=== PATIENT | female | born 1945 | race Caucasian/White ===

== ENCOUNTER 2016-07-04 06:54 | Inpatient (IN) | payer MEDICARE, OTHER ==
[2016-06-29 13:00] LABS: BASOPHILS 0.2 %; BASOPHILS ABSOLUTE 0.01 10/3/uL (0.0-0.16); EOSINOPHILS 0.5 %; EOSINOPHILS ABSOLUTE 0.03 10/3/uL (0.0-0.53); HEMATOCRIT 37.9 % (36.0-48.0); HEMOGLOBIN 12.9 g/dL (12.0-16.0); IMMATURE GRANULOCYTES 0.2 %; IMMATURE GRANULOCYTES ABSOLUTE 0.01 10/3/uL (0.0-0.11); LYMPHOCYTES 35.3 %; LYMPHOCYTES ABSOLUTE 1.93 10/3/uL (0.67-4.30); MEAN CORPUSCULAR HEMOGLOB 30.1 pg (26.0-34.0); MEAN CORPUSCULAR VOLUME 88.3 fL (80-100); MEAN PLATELET VOLUME 10.7 fL (9.2-13.0); MONOCYTES 5.7 %; MONOCYTES ABSOLUTE 0.31 10/3/uL (0.21-1.20); NEUTROPHILS 58.1 %; NEUTROPHILS ABSOLUTE 3.18 10/3/uL (2.02-8.40); PLATELET COUNT 177 10/3/uL (150-400); RBC DISTRIBUTION WIDTH 13.1 % (12.0-16.0); RED CELL COUNT 4.29 10/6/uL (4.0-5.6)
[2016-06-29 13:03] LABS: MANUAL DIFF NO %; WHITE BLOOD CELLS 5.5 10/3/uL (4.5-10.5)
[2016-06-29 13:07] LABS: INTERNATIONAL NORMAL RATI 1.1 UNITS (-); PROTIME (NOT ORD) 13.9 SEC (12.0-14.5)
[2016-06-29 13:11] LABS: ASCORBIC ACID (UR NOT ORDER) NEG (NEG); BILIRUBIN, URINE NEGATIVE (NEG); KETONE, URINE NEGATIVE (NEG); LEUKOCYTE ESTERASE(NOT OR LARGE (NEG); WBC (NOT ORDERED) (RFLEX) 16 (0-5)
[2016-06-29 13:17] LABS: % IRON SAT 24 % (20-50); A/G RATIO 1.4 (0.7-1.9); ALKALINE PHOSPHATASE 95 U/L (45-117); CALCIUM, SERUM 9.6 MG/DL (8.5-10.4); CHLORIDE, SERUM 108 MMOL/L (96-112); CO2 (CARBON DIOXIDE) 29 MMOL/L (24-34); CREATININE 0.61 MG/DL (0.55-1.02); GFR AFRICAN AMERICAN 106 ML/MIN (>=60); GFR NON AFRICAN AMERICAN 92 ML/MIN (>=60); GLOBULIN 2.8 G/DL (2.5-4.1); GLUCOSE, SERUM 113 MG/DL (60-99); IRON BINDING CAPACITY 366 MCG/DL (225-410); IRON, SERUM 87 MCG/DL (35-150); POTASSIUM, SERUM 3.8 MMOL/L (3.5-5.3); SGOT(AST) 14 U/L (5-40); SGPT(ALT) 23 U/L (5-65); SODIUM, SERUM 144 MMOL/L (135-148); TOTAL BILIRUBIN 0.5 MG/DL (0-1.2); TOTAL PROTEIN 6.8 G/DL (6.0-8.5)
[2016-06-29 13:18] LABS: BUN (BLOOD UREA NITROGEN) 13 MG/DL (6-23)
--- NOTE | ~2016-07-04 | DS ---
Discharge Summary [facility] [address] [place]. [address] NAME: MONTY BEYER : 47 STATUS : DIS IN PAT#: [id number] AGE: 71 ADM/REG DATE : 07/04/16 MR#: [id number] REPORT SERV DATE: 07/20/16 DICTATED BY: MALGORZATA DIAL DATE: 07/19/16 REPORT STATUS : Draft TRANSCRIBED BY: ADARSH DATE: 07/19/16 Data Collection from hospitalization DISCHARGE DIAGNOSES: 1. Coronary artery disease status post coronary artery bypass grafting. 2. Hypertension. 3. Hyperlipidemia. 4. Peripheral vascular disease. 5. History of transient ischemic attack. 6. Sjogren syndrome. 7. Fibromyalgia. 8. Paget disease. CONSULTATIONS: Dr. Slava Damon. PROCEDURES PERFORMED: Coronary artery bypass grafting x2 with BILL to the LAD, right internal mammary artery placed to the first diagonal, bilateral internal mammary artery harvest, transesophageal echocardiography, 07/04/2016. DISCHARGE MEDICATIONS: Norvasc 10 mg daily, aspirin 81 mg daily, Lipitor 40 mg daily, Dulcolax 15 mg as needed/Dulcolax 300 mg daily as needed, Lasix 40 mg daily, Lopressor 25 mg twice a day, K-Dur 20 mEq daily, Fleetwood Saline gel one application nasally daily as needed, Fleetwood nasal mist one spray nasally daily as needed, Nucynta 50 mg every four hours as needed, probiotic one tablet daily. CONDITION AT DISCHARGE: Stable. DISPOSITION: The patient was discharged home on an 1800-calorie cardiac/diabetic diet with activities as instructed. She would follow up with Andrés Olson, 09/07/[address] Kalpana Beyer, 07/28/2016. She would follow up with Dr. Krzysztof Martin, 07/19/2016. HOSPITAL COURSE: This is a 71-year-old female, who is a nondiabetic and nonsmoker. She has a history of peripheral vascular disease with splenic artery aneurysm. She began developing substernal chest discomfort with exertion at time. She sometimes developed unstable anginal symptoms. She had undergone a cardiac catheterization that demonstrated significant coronary artery disease in the LAD and first diagonal system. She had no significant coronary artery disease of the circumflex or right coronary system. Her ventricular function was preserved with ejection fraction greater than 50%. It was felt that the patient's LAD could not be intervened on without jeopardizing this large diagonal that functions as a ramus intermedius vessel in this patient. It was felt that the patient would need to undergo coronary artery bypass grafting. She does have a history of bilateral saphenous vein stripping in the past. She has had venous ultrasound studies that did not show any significant collateral veins in the leg to use for conduit. Treatment options were discussed and it was elected to proceed with surgical intervention. She was admitted to the hospital for further evaluation and treatment. Upon admission, she was taken to the operating room, where she underwent the above-mentioned procedure. She tolerated this well and there were no complications. Postoperatively, she Discharge Summary [address] [place]. [address] NAME: MONTY BEYER : 47 STATUS : DIS IN [facility]#: [id number] AGE: 71 ADM/REG DATE : 07/04/16 MR#: [id number] REPORT SERV DATE: 07/20/16 DICTATED BY: MALGORZATA DIAL DATE: 07/19/16 REPORT STATUS : Draft TRANSCRIBED BY: ADARSH DATE: 07/19/16 was being weaned from the ventilator. Routine postop care was begun. Lipitor was continued. Pepcid was also continued. There had been no evidence of mitral valve dysfunction. Left ventricular ejection fraction was 55%-60%. On the , she was up sitting in a chair. Her lungs were clear. Chest tubes were going to be removed. Low-dose Nucynta was going to began. She was seen by Dr. Slava Damon. Her sternum was sore. She had no shortness of breath or palpitations. White count was 13.7. Blood pressure was under good control now. Hydralazine would be given as needed. We encouraged her to use incentive spirometry. IV Lasix was given for diuresis. On the , her incisions looked okay. She had no edema. White count was 9.8. She remained in a sinus rhythm. We encouraged her to increase her activity. Blood pressure was under good control. On 07/08/2016, she did complain of mild chest soreness around the sternum. She had good pain control. She had no new complaints. Chest x-ray showed bilateral atelectasis and bilateral pleural effusions. She seemed to be progressing well. Discharge planning was performed. She had decreased O2 requirement. She was encouraged to increase her activity. On 07/10/2016, she looked good. She was ambulating in the still. She had decreased breath sounds in the bases. Discharge instructions were given. Due to her improved and stable condition, she was discharged home with the above-stated instructions. Information collected by: Sofi Urbano I submit the above information as my discharge summary. CINDY/ADARSH Malgorzata Dial M.D. / [id number] CC: Clarissa Cruz M.D. Brian Negus, M.D.
--- NOTE | ~2016-07-04 | OP ---
Record Of Operation [facility] [address] [place]. [address] NAME: MONTY BEYER : 47 STATUS : ADM IN PAT#: [id number] AGE: 71 ADM/REG DATE : 07/04/16 MR#: [id number] REPORT SERV DATE: 07/04/16 DICTATED BY: MALGORZATA DIAL DATE: 07/04/16 REPORT STATUS : Draft TRANSCRIBED BY: MODL DATE: 07/04/16 DATE OF PROCEDURE: 07/04/2016 PREOPERATIVE DIAGNOSES: 1. Coronary artery disease with angina. 2. Peripheral vascular disease with splenic artery aneurysm. 3. Sjogren's syndrome. 4. Hypertension. 5. Hyperlipidemia. 6. History of transient ischemic attack or stroke. POSTOPERATIVE DIAGNOSES: 1. Coronary artery disease with angina. 2. Peripheral vascular disease with splenic artery aneurysm. 3. Sjogren's syndrome. 4. Hypertension. 5. Hyperlipidemia. 6. History of transient ischemic attack or stroke. PROCEDURES PERFORMED: 1. Coronary artery bypass grafting x2, left internal mammary artery placed to left anterior descending, right internal mammary artery placed to the first diagonal. 2. Bilateral internal mammary artery harvest. 3. Transesophageal echocardiography. SURGEON: Malgorzata Dial M.D. ASSISTANTS: Gavi Vale, and Moe Fairbanks. ANESTHESIA: General with Dr. Graeme Villaseñor. ATHLETIC SCOUT: Jaden Garg M.D. INDICATIONS: This is a 71-year-old active female, who is nondiabetic and nonsmoker. She has history of peripheral vascular disease with splenic artery aneurysm. She began developing substernal chest discomfort with exertion at times. Sometimes develops unstable anginal symptoms. She was referred by Dr. Martin to Dr. Garg, and underwent a cardiac catheterization demonstrating significant coronary artery disease in the LAD, and first diagonal system. She had no significant coronary artery disease of the circumflex or right coronary systems. Her ventricular function was preserved with ejection fraction greater than 50%. It was felt that the patient's LAD could not be intervened on without jeopardizing this large diagonal that functions as a ramus intermedius vessel in this patient. We were asked to see the patient for possible coronary artery bypass grafting. She has a history of bilateral saphenous vein stripping in the past. She has had venous ultrasound studies that did not show any significant collateral veins in the legs to use for conduit. We discussed possible bypass surgery with the patient and her family, and after Record Of Operation [facility] [address] [place]. [address] NAME: MONTY BEYER : 47 STATUS : ADM IN PAT#: [id number] AGE: 71 ADM/REG DATE : 07/04/16 MR#: [id number] REPORT SERV DATE: 07/04/16 DICTATED BY: MALGORZATA DIAL DATE: 07/04/16 REPORT STATUS : Draft TRANSCRIBED BY: ADARSH DATE: 07/04/16 discussing the operation indications and risks, they wished to proceed. STS predicted mortality of less than 4%. Morbidity and mortality less than 12%, and these were shared with the family. FINDINGS AT OPERATION: 1. Cross-clamp time of 47 minutes. Total pump time of 59 minutes. 2. The LAD was 1.75 mm mildly diseased vessel. A 2.5 mm BILL was anastomosed to it with good runoff. 3. The first diagonal was 1.75 mm and mildly diseased. A 2 mm right internal mammary artery was anastomosed to it with good runoff. The right mammary and its pedicle were placed posterior to the ascending aorta and through the transverse sinus. 4. Both internal mammary arteries were good conduit and both grafts had excellent Doppler signal at the end of the case. 5. KYLEE demonstrated good ventricular function. There was no surgically significant valvular dysfunction on KYLEE. PATHOLOGIC SPECIMENS: None. DESCRIPTION OF PROCEDURE: The patient was brought to the operating suite. General anesthesia was induced. Airway was secured with an endotracheal tube. Lines were secured by Anesthesia. Nuñez catheter was placed. The patient's chest, abdomen, groin, and legs were prepped with Hibiclens and ChloraPrep, and draped with Ioban sterile sheets. KYLEE probe was placed by Dr. Villaseñor, and examination was carried out as discussed above. Bilateral internal mammary artery harvesting was then started. Briefly, a midline sternal incision was made with sternal saw. The left hemithorax was elevated. Left endothoracic fascia was incised. Side branches of the BRANDAN were clipped and divided. Once the BRANDAN was completely dissected, the chest tube was placed in the left pleural cavity. Then, the BRANDAN retractor was reversed and the right hemithorax was elevated. The right endothoracic fascia was incised. The side branches of this right internal mammary artery were clipped and divided. Once the right internal mammary artery was completely dissected, the patient was anticoagulated with heparin and a chest tube was placed in the right pleural cavity. Then both mammary vessels were clipped and divided distally. There was good flow through both the vessels and the pedicles were infiltrated with papaverine solution. Then, the Manny retractor was placed in the pericardium over from the innominate vein. The diaphragm was T'd and tacked to the side of the chest wall. Cannulation pursestring sutures were placed and cannulation was carried in routine manner. A retrograde cardioplegia cannula was placed in the coronary sinus. When all was in readiness, the patient was placed on cardiopulmonary bypass. The distal targets were marked out on the heart as described in the findings. The LAD was an intramyocardial vessel that was dissected out. Then, a heart support was placed. The aorta was crossclamped, and an initial dose of cold blood cardioplegia solution was given in a combination of antegrade and retrograde fashion, then in a retrograde manner at 20 to 25 minutes intervals during the remainder of the cross-clamp period. Record Of Operation [facility] [address] [facility] [place]. [address] NAME: MONTY BEYER : 47 STATUS : ADM IN [facility]#: [id number] AGE: 71 ADM/REG DATE : 07/04/16 MR#: [id number] REPORT SERV DATE: 07/04/16 DICTATED BY: MALGORZATA DIAL DATE: 07/04/16 REPORT STATUS : Draft TRANSCRIBED BY: ADARSH DATE: 07/04/16 Following the first dose cardioplegia, the heart was positioned for the ramus intermedius or first diagonal vessel. Arteriotomy was made. The right internal mammary artery was brought into the middle mediastinum through a notch in the pericardium over the SVC. Care was taken to avoid injury to the phrenic nerve. The right mammary and its pedicle were passed posterior to the aorta, and came to lay adjacent to the ramus intermedius or first diagonal vessel. Arteriotomy was made and the BRANDAN was opened correspondingly. The BRANDAN was then anastomosed to the first diagonal with a running suture of 8-0 Prolene. The endothoracic fascia was tacked to the epicardium. The bulldog clamp on the BRANDAN pedicle was released, and Doppler signals demonstrated good flow through the graft. The endothoracic fascia was tacked to the epicardium around this anastomosis. Then, the bulldog vascular clamp was reapplied and another dose of cardioplegia was given by Anesthesia. The mid LAD was intramyocardial. This was dug out and arteriotomy was made. Left mammary artery was brought into the left chest through a notch in the pericardium over the pulmonary artery. The BRANDAN was opened and anastomosed to the LAD with a running suture of 8-0 Prolene. The endothoracic fascia was tacked to epicardium. The patient was placed in Trendelenburg and final dose of warm blood cardioplegia was given in a retrograde fashion. Ventricular and atrial pacing wires were placed. Following the last dose cardioplegia and deairing of the aorta, the aortic cross-clamp was removed. The distal and proximal anastomoses were inspected and made hemostatic. Doppler demonstrated good flow through both the grafts. The heart resumed a normal sinus rhythm spontaneously and ventilations were begun. When the heart demonstrated good contractility, it was allowed to fill and eject. When deairing was completed, the patient was taken out of Trendelenburg. The ascending aortic vent was removed and these pursestring sutures were tied and reinforced. The patient was then weaned from cardiopulmonary bypass with minimal inotropic support. The venous cannulas were removed and these pursestring sutures were tied. KYLEE examination demonstrated good ventricular function without significant valvular pathology. Protamine was administered by Anesthesia, and following a period of hemodynamic stability, the aortic cannula was removed, and these pursestring sutures were tied and reinforced. The patient continued do well, and the chest was irrigated copiously with saline. Meticulous hemostasis was obtained. Hemasorb was placed along the cut edge of the sternum. Once hemostasis was assured, the pericardium was draped over the anterior surface of the heart, and tacked into position. Doppler demonstrated good flow through the grafts following the protamine administration. Then, the chest tubes were placed and sternum was reapproximated with eight sternal wires. The clavipectoral fascia and linea alba were closed with #1 Stratafix. The subcutaneous tissue was closed, and the skin was closed in subcuticular fashion. The patient tolerated the procedure well. There were no complications. Sponge and needle counts were correct. Record Of [facility] [address] [place]. [address] NAME: MONTY BEYER : 47 STATUS : ADM IN PAT#: [id number] AGE: 71 ADM/REG DATE : 07/04/16 MR#: [id number] REPORT SERV DATE: 07/04/16 DICTATED BY: MALGORZATA DIAL DATE: 07/04/16 REPORT STATUS : Draft TRANSCRIBED BY: ADARSH DATE: 07/04/16 DISPOSITION: The patient was left intubated, sedated, and transported to the Intensive Care Unit in stable condition. MARIJA/ADARSH Malgorzata Dial M.D. / [id number] CC: Clarissa Cruz M.D. Van Stephen Monroe Jr., M.D.
[~2016-07-04 06:54] MED LIST: ASAB PO; AYR NAS; AYR SALINE NAS; BIST PO; DULCOLAX STOOL100 MG PO; IMDUR30 PO; LIPITOR40 PO; MOBIC7.5 PO; PLEND5 PO; PROBIOTIC PO
[2016-07-04 13:08] LABS: CARBOXYHEMOGLOBIN 0.3 % (0-3); HEMOBLOGIN CONTENT 12.1 G/DL (12-16); INSTRUMENT SERIAL # 11843; METHEMOGLOBIN 0.5 % (0-3); MODE SIMV; O2 CONTENT 16.5 VOL% (18-24); OPERATOR ID 18642; PCO2 (CO2 TENSION) 33 MMHG (35-45); PO2 (O2 TENSION) 100 MMHG (79-93); PRESSURE SUPPORT 0 cm.H2O; SAMPLE Arterial; TIDAL VOLUME 600 ML
[2016-07-04 13:21] LABS: HEMOGLOBIN 11.4 g/dL (12.0-16.0)
[2016-07-04 13:22] LABS: PLATELET COUNT 108 10/3/uL (150-400)
[2016-07-04 13:27] LABS: INTERNATIONAL NORMAL RATI 1.6 UNITS (-); PARTIAL THROMBO TIME 31.8 SEC (22.5-37.2)
[2016-07-04 13:28] LABS: PROTIME (NOT ORD) 18.6 SEC (12.0-14.5)
[2016-07-04 13:32] LABS: BUN (BLOOD UREA NITROGEN) 11 MG/DL (6-23); CALCIUM, SERUM 8.7 MG/DL (8.5-10.4); CHLORIDE, SERUM 115 MMOL/L (96-112); CREATININE 0.79 MG/DL (0.55-1.02); GFR AFRICAN AMERICAN 88 ML/MIN (>=60); GFR NON AFRICAN AMERICAN 76 ML/MIN (>=60); GLUCOSE, SERUM 112 MG/DL (60-99); POTASSIUM, SERUM 3.9 MMOL/L (3.5-5.3); SODIUM, SERUM 146 MMOL/L (135-148)
[2016-07-04 13:33] LABS: CO2 (CARBON DIOXIDE) 22 MMOL/L (24-34)
[2016-07-04 18:19] LABS: BE (BASE EXCESS) -4.9 MEQ/L (0 +/- 2.5); CARBOXYHEMOGLOBIN 0.3 % (0-3); DEVICE NC; HCO3 (ACTUAL BICARBONATE) 20.5 MEQ/L (23-27); HEMOBLOGIN CONTENT 12.3 G/DL (12-16); INSTRUMENT SERIAL # 11843; METHEMOGLOBIN 0.5 % (0-3); O2 CONTENT 17.1 VOL% (18-24); OPERATOR ID 18642; PCO2 (CO2 TENSION) 39 MMHG (35-45); PO2 (O2 TENSION) 144 MMHG (79-93); SAMPLE Arterial; pH 7.34 (7.37-7.43)
[2016-07-04 19:41] LABS: HEMATOCRIT 32.8 % (36.0-48.0); HEMOGLOBIN 11.3 g/dL (12.0-16.0)
[2016-07-04 19:50] LABS: POTASSIUM, SERUM 4.2 MMOL/L (3.5-5.3)
[2016-07-05 03:42] LABS: BASOPHILS 0 %; EOSINOPHILS 0 %; HEMATOCRIT 31.9 % (36.0-48.0); HEMOGLOBIN 10.8 g/dL (12.0-16.0); IMMATURE GRANULOCYTES 0.3 %; IMMATURE GRANULOCYTES ABSOLUTE 0.04 10/3/uL (0.0-0.11); LYMPHOCYTES 4.2 %; LYMPHOCYTES ABSOLUTE 0.58 10/3/uL (0.67-4.30); MEAN CORPUS HGB CONC 33.9 g/dL (32.0-36.0); MEAN CORPUSCULAR HEMOGLOB 30.1 pg (26.0-34.0); MEAN CORPUSCULAR VOLUME 88.9 fL (80-100); MONOCYTES ABSOLUTE 0.41 10/3/uL (0.21-1.20); NEUTROPHILS 92.5 %; NEUTROPHILS ABSOLUTE 12.66 10/3/uL (2.02-8.40); PLATELET COUNT 125 10/3/uL (150-400); RBC DISTRIBUTION WIDTH 13.2 % (12.0-16.0); RED CELL COUNT 3.59 10/6/uL (4.0-5.6)
[2016-07-05 03:46] LABS: MANUAL DIFF NO %; WHITE BLOOD CELLS 13.7 10/3/uL (4.5-10.5)
[2016-07-05 03:55] LABS: BUN (BLOOD UREA NITROGEN) 16 MG/DL (6-23); CALCIUM, SERUM 8.7 MG/DL (8.5-10.4); CHLORIDE, SERUM 118 MMOL/L (96-112); CO2 (CARBON DIOXIDE) 22 MMOL/L (24-34); CREATININE 0.53 MG/DL (0.55-1.02); GFR AFRICAN AMERICAN 111 ML/MIN (>=60); GFR NON AFRICAN AMERICAN 96 ML/MIN (>=60); GLUCOSE, SERUM 89 MG/DL (60-99); POTASSIUM, SERUM 4.5 MMOL/L (3.5-5.3); SODIUM, SERUM 148 MMOL/L (135-148)
[2016-07-05 04:15] LABS: INTERNATIONAL NORMAL RATI 1.3 UNITS (-); PROTIME (NOT ORD) 16.2 SEC (12.0-14.5)
[2016-07-05 16:41] LABS: HEMATOCRIT 30.4 % (36.0-48.0); HEMOGLOBIN 10.5 g/dL (12.0-16.0)
[2016-07-06 03:35] LABS: BASOPHILS 0.1 %; BASOPHILS ABSOLUTE 0.01 10/3/uL (0.0-0.16); EOSINOPHILS 0 %; HEMATOCRIT 30.4 % (36.0-48.0); HEMOGLOBIN 10.2 g/dL (12.0-16.0); IMMATURE GRANULOCYTES 0.4 %; IMMATURE GRANULOCYTES ABSOLUTE 0.05 10/3/uL (0.0-0.11); LYMPHOCYTES 14.8 %; LYMPHOCYTES ABSOLUTE 2.03 10/3/uL (0.67-4.30); MEAN CORPUS HGB CONC 33.6 g/dL (32.0-36.0); MEAN CORPUSCULAR HEMOGLOB 30.4 pg (26.0-34.0); MEAN CORPUSCULAR VOLUME 90.5 fL (80-100); MEAN PLATELET VOLUME 10.8 fL (9.2-13.0); MONOCYTES 6.8 %; MONOCYTES ABSOLUTE 0.93 10/3/uL (0.21-1.20); NEUTROPHILS 77.9 %; NEUTROPHILS ABSOLUTE 10.67 10/3/uL (2.02-8.40); PLATELET COUNT 121 10/3/uL (150-400); RBC DISTRIBUTION WIDTH 13.6 % (12.0-16.0); RED CELL COUNT 3.36 10/6/uL (4.0-5.6); WHITE BLOOD CELLS 13.7 10/3/uL (4.5-10.5)
[2016-07-06 03:37] LABS: MANUAL DIFF NO %
[2016-07-06 03:51] LABS: BUN (BLOOD UREA NITROGEN) 18 MG/DL (6-23); CALCIUM, SERUM 8.5 MG/DL (8.5-10.4); CHLORIDE, SERUM 108 MMOL/L (96-112); CREATININE 0.66 MG/DL (0.55-1.02); GFR AFRICAN AMERICAN 104 ML/MIN (>=60); GFR NON AFRICAN AMERICAN 90 ML/MIN (>=60); POTASSIUM, SERUM 3.9 MMOL/L (3.5-5.3)
[2016-07-06 03:56] LABS: CO2 (CARBON DIOXIDE) 27 MMOL/L (24-34); GLUCOSE, SERUM 147 MG/DL (60-99); SODIUM, SERUM 141 MMOL/L (135-148)
[2016-07-06 16:40] LABS: BUN (BLOOD UREA NITROGEN) 17 MG/DL (6-23); CHLORIDE, SERUM 104 MMOL/L (96-112); CO2 (CARBON DIOXIDE) 30 MMOL/L (24-34); CREATININE 0.78 MG/DL (0.55-1.02); GFR AFRICAN AMERICAN 89 ML/MIN (>=60); GFR NON AFRICAN AMERICAN 77 ML/MIN (>=60); GLUCOSE, SERUM 144 MG/DL (60-99); POTASSIUM, SERUM 3.4 MMOL/L (3.5-5.3); SODIUM, SERUM 140 MMOL/L (135-148)
[2016-07-06 20:31] LABS: POTASSIUM, SERUM 3.8 MMOL/L (3.5-5.3)
[2016-07-07 03:43] LABS: BUN (BLOOD UREA NITROGEN) 11 MG/DL (6-23); CALCIUM, SERUM 8.9 MG/DL (8.5-10.4); CHLORIDE, SERUM 107 MMOL/L (96-112); CO2 (CARBON DIOXIDE) 29 MMOL/L (24-34); CREATININE 0.67 MG/DL (0.55-1.02); GFR AFRICAN AMERICAN 103 ML/MIN (>=60); GFR NON AFRICAN AMERICAN 89 ML/MIN (>=60); GLUCOSE, SERUM 129 MG/DL (60-99); POTASSIUM, SERUM 3.7 MMOL/L (3.5-5.3); SODIUM, SERUM 142 MMOL/L (135-148)
[2016-07-07 07:25] LABS: BASOPHILS 0.2 %; BASOPHILS ABSOLUTE 0.02 10/3/uL (0.0-0.16); EOSINOPHILS 0.3 %; EOSINOPHILS ABSOLUTE 0.03 10/3/uL (0.0-0.53); HEMOGLOBIN 11.4 g/dL (12.0-16.0); IMMATURE GRANULOCYTES 0.3 %; IMMATURE GRANULOCYTES ABSOLUTE 0.03 10/3/uL (0.0-0.11); LYMPHOCYTES 18.6 %; LYMPHOCYTES ABSOLUTE 1.83 10/3/uL (0.67-4.30); MEAN CORPUS HGB CONC 33.3 g/dL (32.0-36.0); MEAN PLATELET VOLUME 11.9 fL (9.2-13.0); MONOCYTES 8.4 %; MONOCYTES ABSOLUTE 0.83 10/3/uL (0.21-1.20); NEUTROPHILS 72.2 %; PLATELET COUNT 141 10/3/uL (150-400); RBC DISTRIBUTION WIDTH 13.7 % (12.0-16.0); WHITE BLOOD CELLS 9.8 10/3/uL (4.5-10.5)
[2016-07-07 07:26] LABS: HEMATOCRIT 34.2 % (36.0-48.0); MANUAL DIFF NO %
[2016-07-08 04:44] LABS: BASOPHILS 0.3 %; BASOPHILS ABSOLUTE 0.03 10/3/uL (0.0-0.16); EOSINOPHILS ABSOLUTE 0.09 10/3/uL (0.0-0.53); HEMATOCRIT 35.6 % (36.0-48.0); HEMOGLOBIN 12.2 g/dL (12.0-16.0); IMMATURE GRANULOCYTES 0.4 %; IMMATURE GRANULOCYTES ABSOLUTE 0.04 10/3/uL (0.0-0.11); LYMPHOCYTES 21.3 %; LYMPHOCYTES ABSOLUTE 1.95 10/3/uL (0.67-4.30); MEAN CORPUS HGB CONC 34.3 g/dL (32.0-36.0); MEAN CORPUSCULAR HEMOGLOB 30.4 pg (26.0-34.0); MEAN CORPUSCULAR VOLUME 88.8 fL (80-100); MONOCYTES 7.2 %; MONOCYTES ABSOLUTE 0.66 10/3/uL (0.21-1.20); NEUTROPHILS 69.8 %; NEUTROPHILS ABSOLUTE 6.38 10/3/uL (2.02-8.40); PLATELET COUNT 147 10/3/uL (150-400); RBC DISTRIBUTION WIDTH 13.3 % (12.0-16.0); RED CELL COUNT 4.01 10/6/uL (4.0-5.6); WHITE BLOOD CELLS 9.2 10/3/uL (4.5-10.5)
[2016-07-08 04:46] LABS: MANUAL DIFF NO %
[2016-07-08 04:53] LABS: BUN (BLOOD UREA NITROGEN) 13 MG/DL (6-23); CALCIUM, SERUM 9.1 MG/DL (8.5-10.4); CHLORIDE, SERUM 107 MMOL/L (96-112); CO2 (CARBON DIOXIDE) 28 MMOL/L (24-34); CREATININE 0.68 MG/DL (0.55-1.02); GFR AFRICAN AMERICAN 103 ML/MIN (>=60); GFR NON AFRICAN AMERICAN 89 ML/MIN (>=60); GLUCOSE, SERUM 128 MG/DL (60-99); POTASSIUM, SERUM 3.8 MMOL/L (3.5-5.3); SODIUM, SERUM 142 MMOL/L (135-148)
[2016-07-09 04:30] LABS: BUN (BLOOD UREA NITROGEN) 15 MG/DL (6-23); CALCIUM, SERUM 9.1 MG/DL (8.5-10.4); CHLORIDE, SERUM 109 MMOL/L (96-112); CO2 (CARBON DIOXIDE) 28 MMOL/L (24-34); CREATININE 0.65 MG/DL (0.55-1.02); GFR AFRICAN AMERICAN 104 ML/MIN (>=60); GFR NON AFRICAN AMERICAN 90 ML/MIN (>=60); GLUCOSE, SERUM 114 MG/DL (60-99); POTASSIUM, SERUM 4.2 MMOL/L (3.5-5.3); SODIUM, SERUM 143 MMOL/L (135-148)
[2016-07-10 05:44] LABS: CALCIUM, SERUM 9.1 MG/DL (8.5-10.4); CHLORIDE, SERUM 110 MMOL/L (96-112); CO2 (CARBON DIOXIDE) 25 MMOL/L (24-34); CREATININE 0.66 MG/DL (0.55-1.02); GFR AFRICAN AMERICAN 104 ML/MIN (>=60); GFR NON AFRICAN AMERICAN 90 ML/MIN (>=60); GLUCOSE, SERUM 111 MG/DL (60-99); POTASSIUM, SERUM 4.4 MMOL/L (3.5-5.3); SODIUM, SERUM 142 MMOL/L (135-148)
[2016-07-10 05:45] LABS: BUN (BLOOD UREA NITROGEN) 11 MG/DL (6-23)
[2016-07-10] MEDS ORDERED: L40 PO (08:58)
[2016-07-10] MEDS ORDERED: KDUR20 PO (08:59)
[2016-07-10] MEDS ORDERED: NORV10 PO (08:59)
[2016-07-10] MEDS ORDERED: LOP25 PO (09:00)
[2016-07-10] MEDS ORDERED: NUCYNTA50 MG PO (09:00)
== END 2016-07-10 13:03 | disposition home or self-care (01) | DRG 235 ==
LOC: SDC/OF 06:54 → CVICU 12:35 → 5NO 07-07 11:37
PROVIDERS: Nurse Practitioner Family; Thoracic Surgery (Cardiothoracic Vascular Surgery)
PROC: 5A1221Z Performance of Cardiac Output, Continuous (ICD-10-PCS; 2016-07-04)
PROC: B246ZZ4 Ultrasonography of Right and Left Heart, Transesophageal (ICD-10-PCS; 2016-07-04)
PROC: 02100Z9 Bypass Coronary Artery, One Artery from Left Internal Mammary, Open Approach (ICD-10-PCS; principal; 2016-07-04 08:30)
PROC: 02100Z8 Bypass Coronary Artery, One Artery from Right Internal Mammary, Open Approach (ICD-10-PCS; 2016-07-04 08:30)
DX: I25.110 Atherosclerotic heart disease of native coronary artery with unstable angina pectoris (principal); J95.1 Acute pulmonary insufficiency following thoracic surgery; I72.8 Aneurysm of other specified arteries; I73.9 Peripheral vascular disease, unspecified; M35.00 Sjogren syndrome, unspecified; I10 Essential (primary) hypertension; Z86.73 Personal history of transient ischemic attack (TIA), and cerebral infarction without residual deficits; E78.2 Mixed hyperlipidemia
CPT/HCPCS: 36415; 71010; 71020; 80048; 80053; 81001; 82330; 82803; 82805; 82947; 82962; 83036; 83540; 83550; 83735; 84132; 84295; 85014; 85018; 85025; 85049; 85347; 85610; 85730; 86850; 86900; 86901; 86920; 87086; 87641; 93005; 93312; 93320; 93325; 94002; 94640; 94660; 94770; A9270-GY; C1713; C1769; J0690; J1644; J1885; J2150; J2250; J2370; J2440; J2720; J2795; J2930; J3010; J3370; J3475; J3480; P9045; P9047